=== PATIENT | male | born 1990 | race Caucasian/White ===

== ENCOUNTER 2018-01-18 20:28 | Emergency (ER) | payer SELFPAY ==
[~2018-01-18] VITALS: Ht 185.4 cm; Wt 173.4 kg
[~2018-01-18 20:28] MED LIST: CARV12.543 PO; GLIP5TAB10 PO; LOSA100T6 PO; METF500T PO
[2018-01-18 20:32] VITALS: BP 181/100
[2018-01-18] MEDS ORDERED: DIPH,PERTUSS(ACELL),TET VAC/PF 0.5 ML IM-VACC ONE ×2 (20:58→21:00)
[2018-01-18] MEDS ORDERED: LIDOCAINE-MPF 2% ,5ML ONE (20:59)
[2018-01-18] MEDS ORDERED: LIDOCAINE 2%, 20ML SQ ONE (21:00)
[2018-01-18] MEDS ORDERED: BACITRACIN ZINC OINT 500U/GM, 0.9 GM ONE (22:33)
== END 2018-01-18 22:35 | disposition home or self-care (01) ==
LOC: ED 21:57
DX: S51.811A Laceration without foreign body of right forearm, initial encounter (principal); I10 Essential (primary) hypertension; I25.2 Old myocardial infarction; E11.9 Type 2 diabetes mellitus without complications; X58.XXXA Exposure to other specified factors, initial encounter; Y93.89 Activity, other specified; Y92.89 Other specified places as the place of occurrence of the external cause; Y99.8 Other external cause status
CPT/HCPCS: 12034; 99284

== ENCOUNTER 2018-02-26 09:58 | Emergency (ER) | payer OTHER ==
[~2018-02-26] VITALS: Ht 185.4 cm; Wt 172.7 kg
[2018-02-26] MEDS ORDERED: ASPI-650 PO (11:08)
[2018-02-26] MEDS ORDERED: METOPROLOL 1 MG/ML, 5ML ONE ×3 (11:12→12:23)
[2018-02-26] MEDS ORDERED: MORPHINE SULFATE 4 MG/ML, 1ML ONE (11:12)
[2018-02-26] MEDS: METOPROLOL 1 MG/ML, 5ML IVPush PRN ×3 (11:19→12:24)
[2018-02-26] MEDS ORDERED: MORPHINE SULFATE 4 MG/ML, 1ML IVPush PRN (11:30)
[2018-02-26 11:55] LABS: CHLORIDE 104 mmol/L (98-107)
[2018-02-26 11:57] LABS: BASOPHILS # (AUTO) 0.03 x10^3/uL (0-0.1); BASOPHILS % (AUTO) 0 % (0-1); EOSINOPHILS % (AUTO) 2 % (1-7); LYMPHOCYTES # (AUTO) 2.97 x10^3/uL (1-3.4); LYMPHOCYTES % (AUTO) 30 % (22-44); MD NO; MEAN CORPUSCULAR HEMOGLOBIN 28.5 pg (27.5-34.5); MEAN CORPUSCULAR HGB CONC 34.2 g/dL (33.2-36.2); MEAN CORPUSCULAR VOLUME 83.5 fL (81-97); MEAN PLATELET VOLUME 10.7 fL (7.4-10.4); MONOCYTES # (AUTO) 0.52 x10^3/uL (0.2-0.8); MONOCYTES % (AUTO) 5 % (2-9); NEUTROPHILS # (AUTO) 6.18 x10^3/uL (1.8-6.8); NEUTROPHILS % (AUTO) 62 % (42-75); PLATELET COUNT 192 x10^3/uL (130-400); RED BLOOD COUNT 5.21 x10^6/uL (4.38-5.82); RED CELL DISTRIBUTION WIDTH 13.6 % (9.4-14.8)
[2018-02-26 12:04] LABS: ALANINE AMINOTRANSFERASE 50 U/L (12-78); ALBUMIN 3.5 g/dL (3.4-5.0); ALKALINE PHOSPHATASE 62 U/L (45-117); ANION GAP 10 mmol/L (5-15); BILIRUBIN,TOTAL 0.6 mg/dL (0.2-1.0); CREATININE 1.54 mg/dL (0.7-1.3); TOTAL PROTEIN 7.5 g/dL (6.4-8.2); TROPONIN I 0.042 ng/mL (0.000-0.045)
[2018-02-26 12:52] VITALS: BP 186/103
== END 2018-02-26 12:57 | disposition home or self-care (01) ==
LOC: ED 10:27
DX: R07.2 Precordial pain (principal); I10 Essential (primary) hypertension; I25.2 Old myocardial infarction; E11.9 Type 2 diabetes mellitus without complications; Z87.891 Personal history of nicotine dependence
CPT/HCPCS: 36415; 71045; 80053; 83605; 84484; 85025; 93005; 96374; 96375; 96376

== ENCOUNTER 2018-03-26 13:16 | Emergency (ER) | payer SELFPAY ==
[~2018-03-26] VITALS: Ht 185.4 cm; Wt 169.2 kg
[~2018-03-26 13:16] MED LIST changes: +ASPI-650 PO; -LOSA100T6 PO; +LOSA100T7 PO
[2018-03-26] MEDS ORDERED: CARV-39 PO (13:58)
[2018-03-26 14:27] LABS: BASOPHILS # (AUTO) 0.04 x10^3/uL (0-0.1); BASOPHILS % (AUTO) 0 % (0-1); EOSINOPHILS # (AUTO) 0.21 x10^3/uL (0-0.4); EOSINOPHILS % (AUTO) 2 % (1-7); LYMPHOCYTES # (AUTO) 2.59 x10^3/uL (1-3.4); LYMPHOCYTES % (AUTO) 25 % (22-44); MD NO; MEAN CORPUSCULAR HEMOGLOBIN 28.5 pg (27.5-34.5); MEAN CORPUSCULAR HGB CONC 34.6 g/dL (33.2-36.2); MEAN CORPUSCULAR VOLUME 82.3 fL (81-97); MEAN PLATELET VOLUME 10.5 fL (7.4-10.4); MONOCYTES # (AUTO) 0.41 x10^3/uL (0.2-0.8); MONOCYTES % (AUTO) 4 % (2-9); NEUTROPHILS % (AUTO) 69 % (42-75); PLATELET COUNT 206 x10^3/uL (130-400); RED BLOOD COUNT 5.53 x10^6/uL (4.38-5.82); RED CELL DISTRIBUTION WIDTH 12.9 % (9.4-14.8)
[2018-03-26 14:37] LABS: ALANINE AMINOTRANSFERASE 43 U/L (12-78); ALBUMIN 3.2 g/dL (3.4-5.0); ANION GAP 7 mmol/L (5-15); CALCIUM 8.2 mg/dL (8.5-10.1); CHLORIDE 106 mmol/L (98-107); CREATININE 1.54 mg/dL (0.7-1.3)
[2018-03-26 14:41] LABS: ALKALINE PHOSPHATASE 78 U/L (45-117); BILIRUBIN,TOTAL 0.4 mg/dL (0.2-1.0); TOTAL PROTEIN 7.5 g/dL (6.4-8.2); TROPONIN I 0.079 ng/mL (0.000-0.045)
[2018-03-26] MEDS ORDERED: LOSARTAN 50MG TABLET PO ONE (16:30)
[2018-03-26] MEDS ORDERED: LOSA50TA7 PO (16:32)
[2018-03-26 18:18] LABS: TROPONIN I 0.081 ng/mL (0.000-0.045)
[2018-03-26 18:24] VITALS: BP 189/105
== END 2018-03-26 18:57 | disposition home or self-care (01) ==
LOC: ED 17:23
DX: R55 Syncope and collapse (principal); E11.9 Type 2 diabetes mellitus without complications; I10 Essential (primary) hypertension; R06.02 Shortness of breath
CPT/HCPCS: 36415; 71045; 80053; 84484; 85025; 93005; 99285